=== PATIENT | female | born 1935 | race Caucasian/White ===

== ENCOUNTER 2020-09-28 11:02 | Emergency (ER) | payer OTHER ==
[~2020-09-28] VITALS: Ht 165.1 cm; Wt 67.1 kg
[~2020-09-28 11:02] MED LIST: ATORVASTATIN CA40 MG PO; COZAAR50 MG PO; EXEMESTANE25 MG PO; LANOXIN0.25 MG PO; SYNTHROID75 MCG PO
[2020-09-28] MEDS ORDERED: XARELTO10 MG PO (11:23)
== END 2020-09-28 17:40 | disposition home or self-care (01) ==
LOC: ER 11:02
DX: K57.31 Diverticulosis of large intestine without perforation or abscess with bleeding (principal); K62.5 Hemorrhage of anus and rectum

== ENCOUNTER 2020-12-03 05:45 | Day surgery (SDC) | payer OTHER ==
[~2020-12-03 05:45] MED LIST changes: +XARELTO10 MG PO
== END 2020-12-03 09:25 | disposition home or self-care (01) ==
LOC: AMB-ENDOS 05:45 → CIR.AMB 13:30 → AMB-ENDOS 13:30
PROVIDERS: ATTEND Colon & Rectal Surgery
DX: K62.89 Other specified diseases of anus and rectum (principal); K64.1 Second degree hemorrhoids; Z20.822 Contact with and (suspected) exposure to COVID-19